=== PATIENT | male | born 2000 | race African-American/Black ===

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

== ENCOUNTER 2019-03-23 21:56 | Emergency (ER) | payer MEDICAID ==
[~2019-03-23] VITALS: Ht 177.8 cm; Wt 80.0 kg
[2019-03-23] MEDS ORDERED: IPRATROPIUM BROMIDE (0.02%) 0.5MG/2.5ML NEB HHN STA (22:39)
[2019-03-23] MEDS ORDERED: MAGNESIUM 2 G PREMIX 50 ML IV STA (22:39)
[2019-03-23] MEDS ORDERED: METHYLPREDNISOLONE SOD SUCC 125 MG/2 ML VIAL IV STA (22:39)
[2019-03-23] MEDS ORDERED: ALBUTEROL (0.083%) 2.5MG/3ML NEB HHN STA (22:39)
[2019-03-24 01:09] VITALS: BP 93/56
== END 2019-03-24 02:29 | disposition home or self-care (01) ==
LOC: ER 21:56
DX: J45.901 Unspecified asthma with (acute) exacerbation (principal); F12.10 Cannabis abuse, uncomplicated; Z88.8 Allergy status to other drugs, medicaments and biological substances
CPT/HCPCS: 71045; 94644; 96365; 96366; 96375; 99285; J2930; J3475; J7611

== ENCOUNTER 2019-04-15 02:00 | Emergency (ER) | payer MEDICAID ==
[~2019-04-15] VITALS: Ht 177.8 cm; Wt 82.0 kg
[2019-04-15] MEDS ORDERED: MAGNESIUM 2 G PREMIX 50 ML IV STA (02:15)
[2019-04-15] MEDS ORDERED: METHYLPREDNISOLONE SOD SUCC 125 MG/2 ML VIAL IV STA (02:15)
[2019-04-15] MEDS ORDERED: IBUPROFEN 600MG TABLET PO ONE (02:15)
[2019-04-15] MEDS ORDERED: ALBUTEROL (0.083%) 2.5MG/3ML NEB HHN STA (02:15)
[2019-04-15] MEDS ORDERED: IPRATROPIUM BROMIDE (0.02%) 0.5MG/2.5ML NEB HHN STA (02:15)
[2019-04-15 02:47] LABS: HEMATOCRIT 44.1 % (42.0-52.0); HEMOGLOBIN 15.3 g/dL (14.0-18.0); MEAN CORPUSCULAR HEMOGLOBIN 29.7 pg (28.0-32.0); MEAN CORPUSCULAR VOLUME 85.4 fL (80.0-94.0); PLATELET 178 x1000/uL (130-400); RED BLOOD CELL COUNT 5.17 mill/uL (4.7-6.1); RED CELL DISTRIBUTION WIDTH 13.7 % (11.6-14.6)
[2019-04-15 02:50] LABS: CHLORIDE 103 mEq/L (98-107)
[2019-04-15 02:51] LABS: CLARITY URINE CLEAR (CLEAR); COLOR URINE YELLOW (YELLOW); KETONES URINE NEGATIVE (NEGATIVE); LEUKOCYTE ESTERASE URINE NEGATIVE (NEGATIVE); NITRITE URINE NEGATIVE (NEGATIVE); OCCULT BLOOD URINE NEGATIVE (NEGATIVE); PH URINE 5.5 (4.5-8.0); PROTEIN URINE 1+ (NEGATIVE); SPECIFIC GRAVITY URINE 1.019 (1.005-1.030)
[2019-04-15] MEDS ORDERED: ALBUTEROL (0.083%) 2.5MG/3ML NEB ONE (04:25)
[2019-04-15] MEDS ORDERED: ALBUTEROL (0.5%) 2.5MG/0.5ML NEB HHN ONE (04:45)
[2019-04-15 05:21] VITALS: BP 96/51
== END 2019-04-15 05:28 | disposition home or self-care (01) ==
LOC: ER 02:00
DX: J45.901 Unspecified asthma with (acute) exacerbation (principal); R50.9 Fever, unspecified; F12.10 Cannabis abuse, uncomplicated; F17.210 Nicotine dependence, cigarettes, uncomplicated; Z71.6 Tobacco abuse counseling
CPT/HCPCS: 36415; 71045; 80053; 81003; 83605; 85027; 87040; 87086; 94640; 96365; 96366; 96375; 99284; J2930; J3475; J7611; Z7610

== ENCOUNTER 2019-07-17 21:12 | Emergency (ER) | payer MEDICAID, OTHER ==
[~2019-07-17] VITALS: Ht 177.8 cm; Wt 79.0 kg
[2019-07-17] MEDS ORDERED: PREDNISONE 20MG TABLET PO STA (21:15)
[2019-07-17] MEDS ORDERED: ALBUTEROL (0.083%) 2.5MG/3ML NEB HHN STA (21:15)
[2019-07-17] MEDS ORDERED: IPRATROPIUM BROMIDE (0.02%) 0.5MG/2.5ML NEB HHN STA (21:15)
[2019-07-17] MEDS ORDERED: LORAZEPAM 0.5MG TABLET PO ONE (22:45)
[2019-07-17] MEDS ORDERED: SODIUM CHLORIDE 0.9% 1,000 ML IV ONE (22:45)
[2019-07-17] MEDS ORDERED: ACETAMINOPHEN WITH CODEINE 300/30MG TABLET PO ONE (22:45)
[2019-07-18 00:36] VITALS: BP 101/64
== END 2019-07-18 00:46 | disposition home or self-care (01) ==
LOC: ER 21:20
DX: J45.901 Unspecified asthma with (acute) exacerbation (principal); F12.10 Cannabis abuse, uncomplicated
CPT/HCPCS: 71045; 94640; 99284; J7030; J7512; J7611; Z7610

== ENCOUNTER 2020-08-14 20:41 | Emergency (ER) | payer MEDICAID, OTHER ==
[~2020-08-14] VITALS: Ht 180.3 cm; Wt 84.0 kg
[2020-08-14] MEDS ORDERED: ALBUTEROL (0.083%) 2.5MG/3ML NEB HHN STA ×2 (20:57→21:57)
[2020-08-14] MEDS ORDERED: METHYLPREDNISOLONE SOD SUCC 125 MG/2 ML VIAL IV STA (20:57)
[2020-08-14] MEDS ORDERED: IPRATROPIUM BROMIDE (0.02%) 0.5MG/2.5ML NEB HHN STA ×2 (20:57→21:57)
[2020-08-14] MEDS ORDERED: MAGNESIUM 2 G PREMIX 50 ML IV STA (22:02)
[2020-08-15 01:46] VITALS: BP 111/73
== END 2020-08-15 01:51 | disposition home or self-care (01) ==
LOC: ER 20:41 → CANBEDREQ 08-15 01:54
DX: J45.901 Unspecified asthma with (acute) exacerbation (principal); F17.200 Nicotine dependence, unspecified, uncomplicated
CPT/HCPCS: 71045; 93005; 94644; 96365; 96375; 99285; J2930; J3475; Z7610

== ENCOUNTER 2020-09-21 12:48 | Emergency (ER) | payer OTHER ==
[~2020-09-21] VITALS: Ht 177.8 cm; Wt 81.0 kg
[2020-09-21] MEDS ORDERED: ALBUTEROL (0.083%) 2.5MG/3ML NEB HHN ONE ×2 (13:15→15:00)
[2020-09-21] MEDS ORDERED: PREDNISONE 20MG TABLET PO ONE (13:15)
[2020-09-21] MEDS ORDERED: DEXAMETHASONE 4MG/ML 1ML VIAL IM ONE (16:30)
[2020-09-21 17:00] VITALS: BP 126/73
== END 2020-09-21 17:50 | disposition home or self-care (01) ==
LOC: ER 14:58
DX: J45.901 Unspecified asthma with (acute) exacerbation (principal)
CPT/HCPCS: 71045; 94640; 96372; 99284; J1100; J7512; Z7610

== ENCOUNTER 2021-12-19 02:11 | Emergency (ER) | payer MEDICAID, OTHER ==
[~2021-12-19] VITALS: Ht 170.2 cm; Wt 81.0 kg
[~2021-12-19 02:11] MED LIST: FLUT1DIS3 INH; P20 MT
[2021-12-19] MEDS ORDERED: METHYLPREDNISOLONE SOD SUCC 125 MG/2 ML VIAL IV STA (02:23)
[2021-12-19] MEDS ORDERED: ALBUTEROL (0.083%) 2.5MG/3ML NEB HHN STA (02:23)
[2021-12-19] MEDS ORDERED: IPRATROPIUM BROMIDE (0.02%) 0.5MG/2.5ML NEB HHN STA (02:23)
[2021-12-19 02:30] VITALS: BP 110/92
[2021-12-19 03:16] LABS: BASOPHILS % 0.7 % (0.0-2.0); EOSINOPHILS % 6.1 % (0.0-5.0); HEMATOCRIT. 38.9 % (42.0-52.0); HEMOGLOBIN. 13.2 g/dL (14.0-18.0); LYMPHOCYTES % 24.2 % (20.0-50.0); MEAN CORPUSCULAR VOLUME 85.7 fL (80.0-94.0); MEAN PLATELET VOLUME 9.8 fl (7.4-10.4); MONOCYTES % 8.6 % (2.0-8.0); NEUTROPHILS % 60.4 % (40.0-76.0); PLATELET 191 x1000/uL (130-400); RED BLOOD CELL COUNT 4.54 mill/uL (4.7-6.1); RED CELL DISTRIBUTION WIDTH 14.7 % (11.6-14.6)
[2021-12-19 03:19] LABS: CHLORIDE 104 mEq/L (98-107)
[2021-12-19] MEDS ORDERED: PRED10TA MT (04:21)
[2021-12-19] MEDS ORDERED: ALBU6.7H9 INH (04:21)
== END 2021-12-19 05:24 | disposition home or self-care (01) ==
LOC: ER 02:36
DX: J45.901 Unspecified asthma with (acute) exacerbation (principal); Z20.822 Contact with and (suspected) exposure to COVID-19
CPT/HCPCS: 36415; 71045; 80053; 85025; 87426; 93005; 94640; 96374; 99285; J2930; Z7610

== ENCOUNTER 2021-12-28 00:53 | Emergency (ER) | payer MEDICAID ==
[~2021-12-28] VITALS: Ht 170.2 cm; Wt 70.0 kg
[~2021-12-28 00:53] MED LIST changes: +ALBU6.7H9 INH; +PRED10TA MT
[2021-12-28] MEDS ORDERED: ALBUTEROL (0.083%) 2.5MG/3ML NEB HHN STA ×2 (01:07→03:53)
[2021-12-28] MEDS ORDERED: PREDNISONE 20MG TABLET PO STA ×2 (01:07→03:53)
[2021-12-28] MEDS ORDERED: IPRATROPIUM BROMIDE (0.02%) 0.5MG/2.5ML NEB HHN STA ×2 (01:07→03:53)
[2021-12-28 06:00] VITALS: BP 114/64
== END 2021-12-28 06:36 | disposition home or self-care (01) ==
LOC: ER 00:53
DX: J45.901 Unspecified asthma with (acute) exacerbation (principal); F12.10 Cannabis abuse, uncomplicated; Z79.899 Other long term (current) drug therapy
CPT/HCPCS: 94640; 99284; J7512; Z7610

== ENCOUNTER 2022-04-05 07:53 | Emergency (ER) | payer MEDICAID, OTHER ==
[~2022-04-05] VITALS: Ht 175.3 cm; Wt 80.0 kg
[2022-04-05] MEDS ORDERED: ALBUTEROL (0.083%) 2.5MG/3ML NEB HHN STA (08:12)
[2022-04-05] MEDS ORDERED: ALBUTEROL (0.083%) 2.5MG/3ML NEB HHN SCH (08:50)
[2022-04-05] MEDS ORDERED: P50 MT (09:02)
[2022-04-05] MEDS ORDERED: ALBU6.7H9 INH (09:02)
[2022-04-05 09:29] VITALS: BP 142/79
== END 2022-04-05 09:33 | disposition home or self-care (01) ==
LOC: ER 07:53
DX: J45.901 Unspecified asthma with (acute) exacerbation (principal); Z79.899 Other long term (current) drug therapy
CPT/HCPCS: 71045; 93005; 94640; 99283; Z7610

== ENCOUNTER 2022-08-13 23:08 | Inpatient (IN) | payer OTHER ==
[~2022-08-13] VITALS: Ht 175.3 cm; Wt 85.0 kg
[~2022-08-13 23:08] MED LIST changes: +ALBU6.7H3 INH; -ALBU6.7H9 INH; +P50 MT
[2022-08-13] MEDS ORDERED: IPRATROPIUM BROMIDE (0.02%) 0.5MG/2.5ML NEB HHN STA (23:11)
[2022-08-13] MEDS ORDERED: METHYLPREDNISOLONE SOD SUCC 125 MG/2 ML VIAL IV STA (23:11)
[2022-08-13] MEDS ORDERED: MAGNESIUM 2 G PREMIX 50 ML IV ONE (23:15)
[2022-08-13] MEDS ORDERED: SODIUM CHLORIDE 0.9% 1,000 ML IV ONE (23:15)
[2022-08-13] MEDS: ALBUTEROL (0.083%) 2.5MG/3ML NEB HHN SCH (23:29)
[2022-08-13 23:32] LABS: BASOPHILS % 1.2 % (0.0-2.0); EOSINOPHILS % 8.3 % (0.0-5.0); HEMATOCRIT. 52.2 % (42.0-52.0); HEMOGLOBIN. 17.1 g/dL (14.0-18.0); LYMPHOCYTES % 31.6 % (20.0-50.0); MEAN CORPUSCULAR HEMOGLOBIN 28.8 pg (28.0-32.0); MEAN PLATELET VOLUME 9.6 fl (7.4-10.4); MONOCYTES % 9.1 % (2.0-8.0); NEUTROPHILS % 49.8 % (40.0-76.0); PLATELET 300 x1000/uL (130-400); RED BLOOD CELL COUNT 5.93 mill/uL (4.7-6.1); RED CELL DISTRIBUTION WIDTH 14.6 % (11.6-14.6)
[2022-08-13 23:34] LABS: CHLORIDE 104 mEq/L (98-107)
[2022-08-14] MEDS: ALBUTEROL (0.083%) 2.5MG/3ML NEB HHN SCH (00:38)
[2022-08-14 05:04] VITALS: BP 97/59
== END 2022-08-14 05:25 | disposition left against medical advice (07) | DRG 203 ==
LOC: ER 23:29 → MICUSO 08-14 01:08 → EDBEDREQ 08-14 01:12
PROVIDERS: ADMIT Internal Medicine; ATTEND Internal Medicine
PROC: 5A09357 Assistance with Respiratory Ventilation, Less than 24 Consecutive Hours, Continuous Positive Airway Pressure (ICD-10-PCS; principal; 2022-08-13)
DX: J45.902 Unspecified asthma with status asthmaticus (principal); R06.03 Acute respiratory distress; Z20.822 Contact with and (suspected) exposure to COVID-19; Z79.899 Other long term (current) drug therapy
CPT/HCPCS: 36415; 71045; 80053; 83605; 85025; 87426; 93005; 99291; J2930; J3475; J7030